=== PATIENT | male | born 1970 | race Hispanic/Latino ===

== ENCOUNTER 2016-09-25 22:20 | Emergency (ER) | payer OTHER ==
[2016-09-25] MEDS ORDERED: oxyCODONE/APAP 10/325 TABLET ONE (23:22)
== END 2016-09-26 01:33 | disposition home or self-care (01) ==
LOC: ER 22:20
DX: S39.012A Strain of muscle, fascia and tendon of lower back, initial encounter (principal); M48.56XA Collapsed vertebra, not elsewhere classified, lumbar region, initial encounter for fracture
CPT/HCPCS: 81003